=== PATIENT | female | born 1960 | race Caucasian/White ===

== ENCOUNTER 2018-08-10 17:00 | Emergency (ER) | payer MEDICARE, OTHER | END 2018-08-10 17:20 | disposition left against medical advice (07) | LOC: ERS 17:00 | DX: Z53.21 Procedure and treatment not carried out due to patient leaving prior to being seen by health care provider (principal) ==

== ENCOUNTER 2018-11-04 07:54 | Outpatient (CLI) | payer MEDICARE, OTHER ==
--- NOTE | 2018-11-04 09:55 | MRI ---
Exam: Brain MRI with and without contrast HISTORY: Migraine headaches. COMPARISON: None FINDINGS: Gradient echo sequence: No hemorrhage Calvarium: Appropriate T1 marrow signal intensity Midline brain parenchyma: Unremarkable Cerebrum:No parenchymal mass, mass effect or midline shift. Brain volume, age-appropriate. Cortical g ray-white matter differentiation is preserved. Ventricles: No evidence of hydrocephalus. Sinuses and mastoid air cells: Adequate aeration Diffusion: Central arterial flow is maintained. Absent restricted diffusion. Postcontrast images: No pathologic enhancement of the brain parenchyma. In the right paraclinoid region, there is a T2 hypointense lesion without associated hypointensity on the gradient echo sequence. There is associated enhancement. Lesion measures 0.8 x 1.1 x 0.8 cm. A r ight paraclinoid aneurysm is favored. A second but less likely consideration may be a meningioma give n extra-axial location. IMPRESSION: 1. 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 Better interrogation with CT angiogram of the head is recomme nded. Results of study discussed with Dr. Rivera 11/04/2018 at 9D 5:00 AM Code CR Transcribed Date/Time: 11/04/2018 10:02 AM
== END 2018-11-04 07:55 | disposition home or self-care (01) ==
LOC: BICMRI 07:54
PROVIDERS: ATTEND Psychiatry & Neurology Neurology
DX: G43.909 Migraine, unspecified, not intractable, without status migrainosus (principal)
CPT/HCPCS: 70553

== ENCOUNTER 2018-11-04 11:21 | Outpatient (CLI) | payer MEDICARE, OTHER ==
--- NOTE | 2018-11-04 12:02 | CT ---
Exam: Head CT without contrast CT angiogram of the head History: Abnormal brain MRI. Possible right paraclinoid aneurysm. COMPARISON: None Correlation: Brain MRI 11/04/2018 FINDINGS: Noncontrast head CT: No parenchymal hemorrhage. No extra-axial hematoma. No midline shift. Basilar ci sterns are patent. Brain volume, age-appropriate Cortical bell-white matter differentiation is preserved. No hydrocephalus. Adequate aeration of sinuses and mastoid air cells. CT ANGIOGRAM: The distal cervical, petrous, and left cavernous carotid arteries have appropriate enhancement in lum inal diameter. There is mild narrowing of the right cavernous segment. Both paraclinoid segments appe ar to be unremarkable. Just beyond the right paraclinoid segment, near the right internal carotid art cherelle terminus, there is a 0.8 cm cranial caudal x 0.6 cm mediolateral x 0.9 cm anterior-posterior aneu rysm. The aneurysm has a dominantly posterior orientation. Anterior circulation: Symmetric enhancement of the A1 and M1 segments. Proximal A2 segments and proxi mal MCA branches have appropriate enhancement and lumenal diameter. Posterior circulation: Left PICA artery origin is unremarkable. Limited evaluation of the right PICA arcuate origin. Both vertebral arteries supply normal-appearing basilar artery. No significant stenos is. The left and right P1 segments have appropriate enhancement and luminal diameter. 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 Results of study discussed with Dr. Rivera 11/04/2018 at 12:02 PM Rowan LEMON. Transcribed Date/Time: 11/04/2018 12:09 PM
== END 2018-11-04 11:22 | disposition home or self-care (01) ==
LOC: CT 11:21
PROVIDERS: ATTEND Psychiatry & Neurology Neurology
DX: I72.0 Aneurysm of carotid artery (principal); G43.909 Migraine, unspecified, not intractable, without status migrainosus
CPT/HCPCS: 70496; 70553

== ENCOUNTER 2018-12-25 10:15 | Inpatient (IN) | payer MEDICARE, OTHER ==
[2019-01-01] MEDS ORDERED: Fentanyl 100 MCG/2 ML VIAL ONE ×2 (13:34→16:38)
[2019-01-01] MEDS ORDERED: Acetaminophen 325 MG TAB PO PRN (15:05)
[2019-01-01] MEDS ORDERED: Labetalol HCl 100 MG/20 ML VIAL SLOW IVP PRN (15:05)
[2019-01-01] MEDS ORDERED: Ondansetron PF 4 MG/2 ML Vial IVP PRN (15:05)
[2019-01-01 17:16] VITALS: BMI 23.7
[2019-01-01 17:19] VITALS: BP 113/61
[2019-01-01] MEDS ORDERED: traMADol HCl 50 MG TAB PO PRN (18:07)
[2019-01-01] MEDS ORDERED: Nortriptyline HCl 25 MG CAP PO SCH (21:00)
[2019-01-01] MEDS: Sodium Chloride 0.9% 1,000 ML IV SCH (21:12)
[2019-01-01] MEDS: Famotidine 20 MG TAB PO SCH (21:12)
[2019-01-01] MEDS: Diazepam 5 MG TAB PO SCH (21:12)
[2019-01-02] MEDS: Diazepam 5 MG TAB PO SCH (07:29)
[2019-01-02] MEDS: Famotidine 20 MG TAB PO SCH (07:29)
[2019-01-02] MEDS: Sodium Chloride 0.9% 1,000 ML IV SCH ×2 (07:31→07:34)
[2019-01-02 08:51] VITALS: TEMP 97.3
--- NOTE | 2019-01-02 10:15 | PRG ---
DATE OF SERVICE: 01/02/2019 Ms. Kasper is postop day #1, following cerebral angiography with coiling of the cerebral aneurysm by Dr. Saldivar. She is in the [facility], resting wall. She is awake and oriented. She is eager to go home today, and anticipate this will likely be the case for her. Job ID: [id number]
== END 2019-01-02 11:12 | disposition home or self-care (01) | DRG 93 ==
LOC: SURG A 01-01 07:33 → CCU 01-01 17:14
PROVIDERS: ADMIT Neurological Surgery; ATTEND Neurological Surgery
PROC: B31Q1ZZ Fluoroscopy of Cervico-Cerebral Arch using Low Osmolar Contrast (ICD-10-PCS; principal; 2019-01-01)
DX: I67.1 Cerebral aneurysm, nonruptured (principal)
CPT/HCPCS: 61624; C1887; J3010

== ENCOUNTER 2018-12-25 10:16 | Outpatient (CLI) | payer MEDICARE, OTHER ==
[2018-12-25 12:04] LABS: Hemoglobin 14.3 g/dL (12.0-16.0); Mean Corpuscular HGB CONC 33.8 g/dL (32.0-36.0); Mean Corpuscular Hemoglobin 31.7 pg (27.0-31.0); Mean Corpuscular Volume 93.6 fL (78.0-98.0); Mean Platelet Volume 6.8 fL (7.4-10.4); Platelet Count 274 thou/uL (130-400); RBC Distribution Width 11.7 % (11.5-14.5); White Blood Cell (WBC) Count 8.7 thou/uL (4.8-10.8)
[2018-12-25 12:25] LABS: Anion Gap 13 mmol/L (10-20); BUN (Urea Nitrogen) 12 mg/dL (9.8-20.1); Calc. Creatinine Clearance 0 mL/min (70-130); Calcium 9.6 mg/dL (7.8-10.44); Carbon Dioxide 25 mmol/L (22-29); Chloride 107 mmol/L (98-107); Estimated GFR-MDRD 76; Glucose 110 mg/dL (70-105); Potassium 4.9 mmol/L (3.5-5.1); Sodium 140 mmol/L (136-145)
--- NOTE | 2018-12-25 13:56 | RAD ---
TWO VIEW CHEST: 12/25/18 HISTORY: Physical exam. Lungs are clear. Heart and mediastinum are unremarkable. Osseous structures are unremarkable. IMPRESSION: No acute finding. POS: [facility]
== END 2018-12-25 10:17 | disposition home or self-care (01) ==
LOC: LABBT 10:16
PROVIDERS: ATTEND Neurological Surgery
DX: Z01.818 Encounter for other preprocedural examination (principal); I67.1 Cerebral aneurysm, nonruptured
CPT/HCPCS: 71046; 80048; 85027; 93005; 93010

== ENCOUNTER 2019-12-27 | Outpatient (CLI) | payer MEDICARE, OTHER | END 2019-12-27 10:50 | disposition home or self-care (01) | DX: I67.1 Cerebral aneurysm, nonruptured (principal) ==

== ENCOUNTER 2020-05-09 09:25 | Outpatient (CLI) | payer MEDICARE, OTHER ==
--- NOTE | 2020-05-09 10:07 | BD ---
EXAM: Bone densitometry using DEXA HISTORY: 60 yo female. Screening for postmenopausal osteoporosis FINDINGS: Right femoral neck--bone mineral density0.603; T score -2.2 ; Z score -0.9 Total proximal right femur--bone mineral density 0.795; T score -1.2 ; Z score -0.3 Left femoral neck--bone mineral density0.614; T score -2.1 ; Z score -0.8 Total proximal left femur--bone mineral density 0.899; T score -0.4 ; Z score 0.6 The 10 year fracture risk for a major osteoporotic fracture is 11% and for a hip fracture is 2.4%. IMPRESSION: Osteopenia
--- NOTE | 2020-05-09 12:14 | CT ---
LDCT OF THE CHEST WIHTOUT IV CONTRAST FOR LUNG CANCER SCREENING: HISTORY: A 60-year-old female current smoker who has smoked for over 30 years, less than 1 pack a day. COMPARISON: None. FINDINGS: There is a 3 mm solid nodule in the left upper lobe and a 4 mm peripheral solid nodule in the right l ower lobe. There is scarring in the lingula. No pneumothoraces or focal areas of consolidation are seen. There are vascular calcifications without evidence of aneurysmal dilatation of the thoracic aorta. T here are degenerative changes in the spine. No pleural or pericardial effusions are seen. IMPRESSION: Lung RADS category 2: benign findings. RECOMMENDATION: A followup low-dose CT is recommended in 12 months. POS: [facility]
--- NOTE | 2020-05-17 11:01 | MMO ---
Bilateral MAMMO Bilat Screen [facility]. CLINICAL HISTORY: Patient is 60 years old and is seen for screening. The patient has no family history of breast cancer. The patient has no personal history of cancer. VIEWS: The views performed were: bilateral craniocaudal with tomosynthesis and bilateral mediolateral oblique with tomosynthesis. FILMS COMPARED: The present examination has been compared to prior imaging studies performed at [facility] on 07/03/2011 and 10/09/2015. This study has been interpreted with the assistance of computer-aided detection. MAMMOGRAM FINDINGS: There are scattered fibroglandular densities. There are stable benign appearing calcifications seen in both breasts. There are no suspicious masses, suspicious calcifications, or new areas of architectural distortion. IMPRESSION: THERE IS NO MAMMOGRAPHIC EVIDENCE OF MALIGNANCY. A ROUTINE FOLLOW-UP MAMMOGRAM IN 1 YEAR IS RECOMMENDED. THE RESULTS OF THIS EXAM WERE SENT TO THE PATIENT. ACR BI-RADS Category 2 - Benign finding MAMMOGRAPHY NOTE: 1. A negative mammogram report should not delay a biopsy if a dominant of clinically suspicious mass is present. 2. Approximately 10% to 15% of breast cancers are not detected by mammography. 3. Adenosis and dense breasts may obscure an underlying neoplasm. Reported by: CORNELIUS VASQUEZ MD Electonically Signed: [id number]
== END 2020-05-09 09:26 | disposition home or self-care (01) ==
LOC: BICMAMMO 09:25
PROVIDERS: ATTEND Family Medicine
DX: Z12.31 Encounter for screening mammogram for malignant neoplasm of breast (principal); Z12.2 Encounter for screening for malignant neoplasm of respiratory organs; Z78.0 Asymptomatic menopausal state; F17.210 Nicotine dependence, cigarettes, uncomplicated; M85.851 Other specified disorders of bone density and structure, right thigh; M85.852 Other specified disorders of bone density and structure, left thigh
CPT/HCPCS: 77063; 77067; 77080; G0297

== ENCOUNTER 2020-12-20 08:57 | Outpatient (CLI) | payer MEDICARE, OTHER ==
[2020-12-20] MEDS ORDERED: Magnevist 469MG/ML 20 ML VIAL ONE (10:18)
== END 2020-12-20 08:58 | disposition home or self-care (01) ==
LOC: BICMRI 08:57
PROVIDERS: ATTEND Nurse Practitioner Acute Care
DX: I67.1 Cerebral aneurysm, nonruptured (principal); G43.909 Migraine, unspecified, not intractable, without status migrainosus
CPT/HCPCS: 70544; 70553; 82565; A9579

== ENCOUNTER 2021-05-23 09:02 | Outpatient (CLI) | payer MEDICARE, OTHER | END 2021-05-23 09:03 | disposition home or self-care (01) | LOC: BICCT 09:02 | PROVIDERS: ATTEND Nurse Practitioner Family | DX: Z12.2 Encounter for screening for malignant neoplasm of respiratory organs (principal); F17.210 Nicotine dependence, cigarettes, uncomplicated; R91.8 Other nonspecific abnormal finding of lung field; K44.9 Diaphragmatic hernia without obstruction or gangrene | CPT/HCPCS: 71271 ==

== ENCOUNTER 2021-05-23 09:23 | Outpatient (CLI) | payer MEDICARE, OTHER | END 2021-05-23 09:24 | disposition home or self-care (01) | LOC: BICMAMMO 09:23 | PROVIDERS: ATTEND Family Medicine | DX: Z13.820 Encounter for screening for osteoporosis (principal); M81.0 Age-related osteoporosis without current pathological fracture | CPT/HCPCS: 77080 ==

== ENCOUNTER 2021-06-13 07:05 | Emergency (ER) | payer MEDICARE, OTHER ==
[2021-06-13] MEDS ORDERED: Acetaminophen 500 MG TAB ONE (07:55)
[2021-06-13] MEDS ORDERED: diphenhydrAMINE 50 MG/ML VIAL ONE (07:55)
[2021-06-13] MEDS ORDERED: Prochlorperazine 10 MG/2 ML VIAL ONE (07:55)
[2021-06-13] MEDS ORDERED: Ketorolac Tromethamine 30 MG/ML VIAL ONE (07:55)
[2021-06-13 08:09] LABS: #Eosinphils 0.1 thou/uL (0.0-0.7); #Lymphocytes 2.4 thou/uL (1.20-3.40); #Monocytes 0.5 thou/uL (0.11-0.59); #Neutrophils 3.2 thou/uL (1.40-6.50); %Basophils 0.4 % (0.0-1.0); %Eosinophils 1.9 % (0.0-10.0); %Lymphocytes 38.6 % (21.0-51.0); %Monocytes 7.6 % (0.0-10.0); %Neutrophils 51.5 % (42.0-75.0); Hemoglobin 12.3 g/dL (12.0-16.0); Mean Corpuscular HGB CONC 34.1 g/dL (32.0-36.0); Mean Corpuscular Hemoglobin 32.9 pg (27.0-31.0); Mean Corpuscular Volume 96.5 fL (78.0-98.0); Mean Platelet Volume 6.6 fL (7.4-10.4); Platelet Count 234 thou/uL (130-400); RBC Distribution Width 12.6 % (11.5-14.5); Red Blood Cell (RBC) Count 3.74 mill/uL (4.20-5.40); White Blood Cell (WBC) Count 6.3 thou/uL (4.8-10.8)
[2021-06-13 08:36] LABS: ALT (SGPT) 11 U/L (8-55); AST (SGOT) 15 U/L (5-34); Albumin 3.3 g/dL (3.4-4.8); Alkaline Phosphatase 51 U/L (40-110); Anion Gap 10 mmol/L (10-20); BUN (Urea Nitrogen) 15 mg/dL (9.8-20.1); Bilirubin, Total Less than 0.2 mg/dL (0.2-1.2); Calc. Creatinine Clearance 0 mL/min (70-130); Carbon Dioxide 26 mmol/L (23-31); Chloride 104 mmol/L (98-107); Glucose 87 mg/dL (80-115); Potassium 3.8 mmol/L (3.5-5.1); Protein, Total 5.3 g/dL (5.8-8.1); Sodium 136 mmol/L (136-145)
[2021-06-13] MEDS ORDERED: methylPREDNISolone Sod Succ/PF 125 MG/2 ML VIAL ONE (09:00)
[2021-06-13] MEDS ORDERED: Magnesium 2 GM/50 ML BAG (IN WATER) ONE (09:00)
== END 2021-06-13 09:52 | disposition home or self-care (01) ==
LOC: ERS 07:05
DX: G43.909 Migraine, unspecified, not intractable, without status migrainosus (principal); Z79.899 Other long term (current) drug therapy
CPT/HCPCS: 36415; 70496; 80053; 85025; 96365; 96375; J0780; J1200; J1885; J2930; J3475

== ENCOUNTER 2022-01-08 07:24 | Outpatient (CLI) | payer MEDICARE, OTHER | END 2022-01-08 07:25 | disposition home or self-care (01) | LOC: BICMRI 07:24 | PROVIDERS: ATTEND Neurological Surgery | DX: I67.1 Cerebral aneurysm, nonruptured (principal) | CPT/HCPCS: 70544; 70553; 82565 ==

== ENCOUNTER 2022-10-03 09:47 | Outpatient (CLI) | payer MEDICARE, OTHER | END 2022-10-03 09:48 | disposition home or self-care (01) | LOC: BICMAMMO 09:47 | PROVIDERS: ATTEND Family Medicine | DX: Z12.31 Encounter for screening mammogram for malignant neoplasm of breast (principal); Z12.2 Encounter for screening for malignant neoplasm of respiratory organs; F17.210 Nicotine dependence, cigarettes, uncomplicated | CPT/HCPCS: 71271; 77063; 77067 ==

== ENCOUNTER 2023-09-08 08:58 | Outpatient (CLI) | payer MEDICARE, OTHER | END 2023-09-08 08:59 | disposition home or self-care (01) | LOC: BICCT 08:58 | PROVIDERS: ATTEND Psychiatry & Neurology Neurology | DX: R51.9 Headache, unspecified (principal); G93.89 Other specified disorders of brain | CPT/HCPCS: 70450 ==

== ENCOUNTER 2024-06-28 08:55 | Outpatient (CLI) | payer MEDICARE, OTHER | END 2024-06-28 08:56 | disposition home or self-care (01) | LOC: MRI 08:55 | PROVIDERS: ATTEND Neurological Surgery | DX: I67.1 Cerebral aneurysm, nonruptured (principal); Z98.890 Other specified postprocedural states | CPT/HCPCS: 70544; 76376 ==